=== PATIENT | male | born 1975 | race African-American/Black ===

== ENCOUNTER 2017-03-01 09:48 | Emergency (ER) | payer SELFPAY | END 2017-03-01 10:40 | disposition home or self-care (01) | LOC: CFTX 09:48 → CED 09:48 → CFTX 10:16 | DX: K08.9 Disorder of teeth and supporting structures, unspecified (principal); K08.89 Other specified disorders of teeth and supporting structures; F17.210 Nicotine dependence, cigarettes, uncomplicated; Z88.1 Allergy status to other antibiotic agents | CPT/HCPCS: 99282 ==